=== PATIENT | female | born 1990 | race Caucasian/White ===

== ENCOUNTER 2016-11-08 14:56 | Emergency (ER) | payer OTHER ==
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
[2016-11-08] MEDS ORDERED: NO MEDICATIONS (15:08)
== END 2016-11-08 16:31 | disposition home or self-care (01) ==
LOC: SED 14:56
DX: S00.83XA Contusion of other part of head, initial encounter (principal); S60.221A Contusion of right hand, initial encounter; Y09 Assault by unspecified means; F17.200 Nicotine dependence, unspecified, uncomplicated
CPT/HCPCS: 70486; 73130; 90715; 99284

== ENCOUNTER 2016-12-25 23:42 | Emergency (ER) | payer OTHER ==
[~2016-12-25] VITALS: Ht 160 cm; Wt 54.4 kg
[~2016-12-25 23:42] MED LIST: NO MEDICATIONS
[2016-12-26 00:10] LABS: URINE SOURCE CLEAN CATCH
[2016-12-26 00:25] LABS: URINE APPEARANCE CLEAR; URINE BILIRUBIN NEG (NEG); URINE BLOOD NEG (NEG); URINE COLOR YELLOW; URINE GLUCOSE NEG (NEG); URINE KETONE NEG (NEG); URINE LEUKOCYTE ESTERASE NEG (NEG); URINE NITRATE NEG (NEG); URINE PH 5.5 (5-8); URINE PROTEIN NEG (NEG); URINE SPECIFIC GRAVITY 1.007 (1.003-1.035); URINE UROBILINOGEN 0.2 MG/DL (NEG)
[2016-12-26 00:32] LABS: CULTURE INDICATED? NO
[2016-12-30 01:45] LABS: CHLAMYDIA TRACH Not Detected (Not Detected); N GONOR Not Detected (Not Detected)
== END 2016-12-26 02:34 | disposition home or self-care (01) ==
LOC: CED 23:42
PROVIDERS: Emergency Medicine
DX: R10.2 Pelvic and perineal pain (principal); F17.200 Nicotine dependence, unspecified, uncomplicated
CPT/HCPCS: 81003; 84703; 87491; 87591; 87808; 87905; 99284